=== PATIENT | male | born 1980 | race Caucasian/White ===

== ENCOUNTER 2018-11-18 06:59 | Day surgery (SDC) | payer BC ==
[2018-11-18] VITALS (8 sets, daily range): BP systolic 121–153; BP diastolic 70–94; PULSE 64–76; TEMP 97.4–97.7
[~2018-11-18] VITALS: Ht 182.9 cm; Wt 90.2 kg
[2018-11-18] MEDS ORDERED: MOTRIN 200200 MG/TAB PO (07:33)
[2018-11-18] MEDS ORDERED: LEADER FIBER1 POW PO (07:35)
[2018-11-18] MEDS ORDERED: NORCO 325 MG-51 TAB PO (09:57)
--- NOTE | 2018-11-18 10:35 | NUR ---
TO RM 1 PER CART FROM PACU. ORIENTED X3, DROWSY BUT TALKING TO STAFF. DENIES PAIN OR DISCOMFORT AT THIS TIME. DENIES NAUSEA OR VOMITING. BRIEFS OVER DRESSING, NO ACTIVE DRAINAGE NOTED.
--- NOTE | 2018-11-18 10:45 | NUR ---
RECEIVED WATER AND TOLERATING WELL.
--- NOTE | 2018-11-18 11:00 | NUR ---
RECEIVED 2ND CUP OF WATER.
--- NOTE | 2018-11-18 11:15 | NUR ---
RECEIVED WATER AND MUFFIN MORE AWAKE
--- NOTE | 2018-11-18 11:30 | NUR ---
RECEIVED PUDDING RETURNED TO RM
--- NOTE | 2018-11-18 12:00 | NUR ---
ATE 100% AND TOLERATED WELL AMBULATED TO BATHROOM WITH STAND BY ASSIST. VOIDED AND TOLERATED WELL.
--- NOTE | 2018-11-18 12:25 | NUR ---
RECEIVED DISCHARGE INSTRUCTIONS AND VERBALIZED UNDERSTANDING. DISCONTINUED IV AND INT- CATHETER INTACT.
--- NOTE | 2018-11-18 12:30 | NUR ---
DISCHARGE PER WC BY NURSING STAFF TO PRIVATE CAR IN CARE OF - KYLE
== END 2018-11-18 12:45 | disposition home or self-care (01) ==
LOC: SDCO 06:59
DX: K64.5 Perianal venous thrombosis (principal); K64.1 Second degree hemorrhoids; K62.5 Hemorrhage of anus and rectum; K60.1 Chronic anal fissure; F41.9 Anxiety disorder, unspecified
CPT/HCPCS: J1100; J1885; J2250; J2405; J2704; J3010; J7120